=== PATIENT | female | born 1970 | race African-American/Black ===

== ENCOUNTER 2017-01-27 23:27 | Observation (INO) | payer BC ==
[~2017-01-27] VITALS: Ht 160 cm; Wt 104.3 kg
--- NOTE | ~2017-01-27 | HP ---
Unit #: [id number] #: [id number] Patient: DEBORAH VILLALBA [id number] [facility]. [place], [place] [address] [id number] E MR#: [id number] NAME: DEBORAH VILLALBA ROOM: Age: 46 Sex: F Admission Date: 01/28/2017 : 1970 Attending Physician: Hayden Melendez D.O. Referring Physician: Clayton Lechuga M.D. Primary Care Physician: Clayton Lechuga M.D. HISTORY AND PHYSICAL CHIEF COMPLAINT Fever, respiratory infection, hypokalemia. HISTORY This pleasant 46-year-old female with hypertension, obstructive sleep apnea is admitted for fever and hypokalemia. The patient states that she returned from the [place] two weeks ago. She was in her usual state of health until 2:00 yesterday afternoon when she developed chills, myalgias which began in her legs and feet bilaterally. She became congested, with ear pain, and started to hallucinate, per family. She had a temperature of 102 degrees at home. She was brought to this emergency department with a temperature of 100.6. She sounds to have head congestion. Labs are notable for a white blood count of 19.8 and a potassium of 2.5. The patient does take hydrochlorothiazide. In the ER, she was given Toradol, IV fluid bolus, two runs of potassium, and a gram of Rocephin. Her TMs looked to be mildly erythematous bilaterally, right more so than the left. No tonsillitis on exam. Lungs are clear with a negative chest x-ray. PAST MEDICAL HISTORY 1. Hypertension. 2. Obstructive sleep apnea, on 14 mm of water pressure. 3. Total abdominal hysterectomy for fibroids. ALLERGIES None. HOME MEDICATIONS 1. P.r.n. Linzess. 2. Aspirin 81 mg daily. 3. Hydrochlorothiazide 25 mg daily. 4. Metoprolol 25 mg b.i.d. 5. Vitamin D3. FAMILY HISTORY Malignancy. SOCIAL HISTORY The patient lives with her daughter. Drinks occasional alcohol. She is a lifelong nonsmoker. REVIEW OF SYSTEMS Notable for head congestion, ear pain, fevers, chills, hypertension, history of anemia, fibroid uterus requiring hysterectomy, obstructive Unit #: [id number] #: [id number] Patient: DEBORAH VILLALBA sleep apnea. All other systems were reviewed and are otherwise negative. PHYSICAL EXAMINATION GENERAL APPEARANCE: Pleasant, moderately obese 46-year-old female who currently is in no acute distress. VITAL SIGNS: Temperature 100.6, pulse 106, respirations 16, blood pressure 131/83. O2 saturation is 100% on room air. HEENT: Eyes PERRLA. Extraocular muscles are intact. Pharynx is benign. Neck is supple but patient does have some mild, tender, enlarged tonsillar lymph nodes bilaterally. TMs appear mildly erythematous, right more than the left. CHEST: Clear. CARDIAC: Normal S1 and S2. There may be a very slight systolic murmur best heard at the left upper sternal border. ABDOMEN: Bowel sounds are present. No hepatosplenomegaly, tenderness or masses. EXTREMITIES: Without clubbing, cyanosis or edema. Pedal pulses are present. Negative Homans sign. The patient has fingernail sami, and I am unable to check for splinter hemorrhages. NEUROLOGIC: The patient is awake, alert, oriented. Cranial nerves are intact. Equal strength throughout. DIAGNOSTIC STUDIES LABORATORY: Hematocrit is 41.4, white blood count is 19.8, normal platelet count and MCV. SMA-12 - glucose 122, sodium 132, potassium 2.5, chloride is 95, protein is 8.8. Flu serology negative. Strep screen negative. IMAGING: Chest x-ray - mild cardiomegaly. ASSESSMENT 1. Fever, likely related to upper respiratory infection but with a white blood count of 20: TMs are mildly erythematous, more on the right. Rule out otitis media. 2. Hypokalemia, on hydrochlorothiazide. 3. Essential hypertension. PLANS 1. Zithromax. 2. Blood and urine cultures. 3. Replace potassium, check magnesium. 4. Hold hydrochlorothiazide. 5. IV fluids and supportive treatment. Dictated by Odalis Silver M.D. SUNNY/caitlin TD: 01/28/2017 05:32 JOB #: [id number] Unit #: [id number] #: [id number] Patient: DEBORAH VILLALBA HISTORY AND PHYSICAL Page 1 of 1 X Odalis Silver MD HISTORY AND PHYSICAL
--- NOTE | ~2017-01-27 | US84 ---
[id number] [facility] [address]. [place], [place] [address] [id number] I MR#: [id number] Acc #: [id number] NAME: DEBORAH VILLALBA : 1970 SEX: F STUDY DATE/TIME: 01/28/2017 7:19 UNIT: [facility] ROOM: 472 STUDY DESCRIPTION: US LE Veins Complete Macario Stdy Attending Physician: Maggie Beard M.D. Referring Physician: Clayton Lechuga M.D. Ordering Physician: Hayden Melendez D.O. Primary Care Physician: Clayton Lechuga M.D. MEDICAL IMAGING REPORT This report is preliminary unless electronic signature is present EXAM Bilateral lower extremity venous Doppler HISTORY 46-year-old female bilateral lower extremity pain since yesterday afternoon, pain and burning sensation. TECHNIQUE Venous ultrasound examination of both lower extremities was performed using grayscale, spectral Doppler and color flow Doppler imaging. FINDINGS The examination is negative. There is no evidence of deep venous thrombus from the groin to the lower calf bilaterally. Visualized greater saphenous veins are also patent. IMPRESSION Negative examination. No evidence of lower extremity deep venous thrombosis. Dictated by... Sylvia Izquierdo M.D. THIS IS AN ELECTRONICALLY VERIFIED REPORT Sylvia Izquierdo M.D. at 01/28/2017 3:53 PM Rey TD: 01/28/2017 14:07 JOB #: [id number] MEDICAL IMAGING REPORT Page 1 of 1 COPY
--- NOTE | ~2017-01-27 | CR63 ---
[facility] A Service of [facility] & [facility] RADIOLOGY TEXT RESULTS PATIENT: DEBORAH VILLALBA LOCATION: [place] [address] : [birth year] UNIT #: [id number] AGE: [address]: Maggie Beard MD SEX: F ORDER DR: [id number] [facility] [address]. [place], [place] [address] [id number] I MR#: [id number] Acc #: [id number] NAME: DEBORAH VILLALBA : 1970 SEX: F STUDY DATE/TIME: 01/28/2017 2:04 UNIT: [facility] ROOM: [facility] STUDY DESCRIPTION: CR Chest 2 View Attending Physician: Maggie Beard M.D. Referring Physician: Clayton Lechuga M.D. Ordering Physician: Hayden Melendez D.O. Primary Care Physician: Clayton Lechuga M.D. MEDICAL IMAGING REPORT This report is preliminary unless electronic signature is present EXAM Two-view chest INDICATIONS Fever, cough and shortness of air for the past 2 days. PROCEDURE Frontal lateral views of the chest. COMPARISON None. FINDINGS Mild cardiomegaly. No dense consolidation, pleural fluid or pneumothorax. IMPRESSION Mild cardiomegaly. No active process. Dictated by... Dylan Sanchez M.D. THIS IS AN ELECTRONICALLY VERIFIED REPORT Dylan Sanchez M.D. at 01/28/2017 9:50 PM EED/to TD: 01/28/2017 13:49 JOB #: [id number] MEDICAL IMAGING REPORT Page 1 of 1 COPY
[2017-01-28] LABS: INFLUENZA A NEG (NEG); INFLUENZA B NEG (NEG)
[2017-01-28 02:10] LABS: BASOPHIL# 0.1 X10e3 (0-0.3); BASOPHIL% 0.4 % (0-2.5); EOSINOPHIL% 0.2 % (0.0-7.0); HEMATOCRIT 41.4 % (35.0-45.0); HEMOGLOBIN 13.6 gm/dL (12.0-16.0); LYMPHOCYTE# 2.7 X10e3 (1.0-3.5); LYMPHOCYTE% 13.4 % (17.0-45.0); MEAN CELL VOLUME 84.5 FL (83-96); MEAN CORPUSCULAR HEMOGLOBIN 27.6 PG (28-34); MEAN CORPUSCULAR HGB CONC 32.7 g/dL (30-36); MEAN PLATELET VOLUME 7.7 FL (6.5-11.5); MONOCYTE# 1.2 X10e3 (0-1.0); MONOCYTE% 6.3 % (3.0-12.0); NEUTROPHIL# 15.8 X10e3 (1.5-7.1); NEUTROPHIL% 79.7 % (40-75); PLATELET COUNT 305 X10e3 (140-420); RED CELL DISTRIBUTION WIDTH 14.8 % (11.0-15.5); WHITE BLOOD COUNT 19.8 X10e3 (4.0-10.5)
[2017-01-28 02:11] LABS: DIFF IND YES
[2017-01-28 02:36] LABS: PLATELET ESTIMATE NORMAL (NORMAL)
[2017-01-28 02:37] LABS: ANISOCYTOSIS SL; STOMATOCYTE PRESENT
[2017-01-28 02:44] LABS: ALBUMIN SERUM 3.9 g/dL (3.5-5.0); BILIRUBIN,TOTAL 0.6 mg/dL (0.2-2.0); BUN/CREATININE RATIO 16.66; CREATININE SERUM 0.9 mg/dL (0.6-1.4); GLOM FILT RATE Estimated 88.9 mL/min (>60); PROTEIN TOTAL SERUM 8.8 g/dL (6.0-8.3)
[2017-01-28 02:45] LABS: POTASSIUM 2.5 mmol/L (3.5-5.1)
[2017-01-28] MEDS ORDERED: ASPIRIN EC81 M1 PO (05:30)
[2017-01-28] MEDS ORDERED: HYDROCHLOROTHIA25 MG PO (05:31)
[2017-01-28] MEDS ORDERED: METOPROLOL TAR25 MG PO ×2 (05:31→05:38)
[2017-01-28] MEDS ORDERED: VITAMIN D3 COM1 EACH PO (05:31)
[2017-01-28 13:21] LABS: URINE SOURCE CLEAN CATCH
[2017-01-28 14:03] LABS: URINE APPEARANCE CLEAR; URINE BILIRUBIN NEG (NEG); URINE BLOOD 1+ (NEG); URINE COLOR YELLOW; URINE GLUCOSE NEG (NEG); URINE KETONE NEG (NEG); URINE LEUKOCYTE ESTERASE NEG (NEG); URINE NITRATE NEG (NEG); URINE PROTEIN 1+ (NEG); URINE SPECIFIC GRAVITY 1.027 (1.003-1.035); URINE UROBILINOGEN 0.2 MG/DL (NEG)
[2017-01-28 14:06] LABS: URINE BACTERIA AUWI 1+ (NEGATIVE); URINE SQUAMOUS EPITHELIAL CELL OCC /[HPF]
[2017-01-28 15:10] LABS: HEMATOCRIT 38.9 % (35.0-45.0); HEMOGLOBIN 12.6 gm/dL (12.0-16.0); MEAN CELL VOLUME 85.5 FL (83-96); MEAN CORPUSCULAR HEMOGLOBIN 27.6 PG (28-34); MEAN CORPUSCULAR HGB CONC 32.3 g/dL (30-36); MEAN PLATELET VOLUME 7.3 FL (6.5-11.5); RED BLOOD COUNT 4.56 X10e (3.90-5.30); RED CELL DISTRIBUTION WIDTH 14.9 % (11.0-15.5); WHITE BLOOD COUNT 17.9 X10e3 (4.0-10.5)
[2017-01-28 15:33] LABS: BASOPHIL# 0.1 X10e3 (0-0.3); BASOPHIL% 0.5 % (0-2.5); EOSINOPHIL# 0.1 X10e3 (0-0.7); EOSINOPHIL% 0.4 % (0.0-7.0); HEMATOCRIT 38.8 % (35.0-45.0); HEMOGLOBIN 12.5 gm/dL (12.0-16.0); LYMPHOCYTE# 2.3 X10e3 (1.0-3.5); LYMPHOCYTE% 13.1 % (17.0-45.0); MEAN CELL VOLUME 85.4 FL (83-96); MEAN CORPUSCULAR HEMOGLOBIN 27.5 PG (28-34); MEAN CORPUSCULAR HGB CONC 32.1 g/dL (30-36); MEAN PLATELET VOLUME 7.7 FL (6.5-11.5); MONOCYTE# 0.9 X10e3 (0-1.0); MONOCYTE% 5.4 % (3.0-12.0); NEUTROPHIL# 14.2 X10e3 (1.5-7.1); NEUTROPHIL% 80.6 % (40-75); PLATELET COUNT 258 X10e3 (140-420); RED BLOOD COUNT 4.54 X10e (3.90-5.30); RED CELL DISTRIBUTION WIDTH 14.5 % (11.0-15.5); WHITE BLOOD COUNT 17.6 X10e3 (4.0-10.5)
[2017-01-28 15:35] LABS: DIFF IND YES
[2017-01-28 15:38] LABS: BUN/CREATININE RATIO 16.25; CALCIUM SERUM 8.4 mg/dL (8.4-10.2); CREATININE SERUM 0.8 mg/dL (0.6-1.4); GLOM FILT RATE Estimated 102.6 mL/min (>60); MAGNESIUM 1.7 mg/dL (1.6-3.0); POTASSIUM 3.3 mmol/L (3.5-5.1)
[2017-01-28 15:57] LABS: ANISOCYTOSIS MOD; PLATELET ESTIMATE NORMAL (NORMAL); POIKILOCYTOSIS SL
[2017-01-28] MEDS ORDERED: ZITHROMAX PO (17:05)
== END 2017-01-28 18:45 | disposition home or self-care (01) | DRG 641 ==
LOC: CED 23:27 → CEDOF 01-28 05:10 → CED 01-28 05:12 → CEDOF 01-28 05:12 → C4C 01-28 09:05 → CEDOF 01-28 09:05 → C4C 01-28 18:45
PROVIDERS: Emergency Medicine; Internal Medicine
DX: E87.6 Hypokalemia (principal); R50.9 Fever, unspecified; I10 Essential (primary) hypertension; G47.33 Obstructive sleep apnea (adult) (pediatric); Z79.82 Long term (current) use of aspirin; Z79.899 Other long term (current) drug therapy
CPT/HCPCS: 36415; 71020; 80048; 80053; 81003; 83735; 85025; 85027; 87040; 87086; 87651; 87804; 93970; 96361; 96365; 96366; 96375; 99285; G0378; J0456; J0696; J1885